=== PATIENT | male | born 1935 | race Caucasian/White ===

== ENCOUNTER → 2016-12-28 | Outpatient (CLI) | payer MEDICARE, OTHER ==
[~2016-12-28] MED LIST: BACTRIM DS1 TAB PO; CALCITRIOL0.25 MCG PO; COUMADIN ** IA3 MG PO; COUMADIN3 MG PO; DIOVAN HCT 3201 EAC1 PO; FLOMAX0.4 MG PO; HUMALOG100 UNIT/1 SUB-Q; KEFLEX500 MG PO; KETOROLAC TROME10 MG PO; LANTUS100 UNIT/1 SUB-Q; LASIX20 MG PO; LEVAQUIN500 MG PO; LIDOPRIL XR 2.1 EACH TOP; LIPITOR40 MG PO; LOPRESSOR50 MG PO; LOVENOX 12120 MG/0.8 SUB-Q; LOVENOX 4040 MG/0.4 SUB-Q; NEOSPORIN1 PKT TOP; NEURONTIN300 MG PO; NORCO 5-325 TA1 EACH PO; NORVASC5 MG PO; PAXIL40 M1 PO; PRESERVISION L1 EACH PO; PRILOSEC20 MG PO; PYRIDIUM100 MG PO; RESTORIL7.5 MG PO; SENOKOT8.6 MG PO; VITAMIN D1000 UNI1 PO
== END | disposition disaster alternative care site (69) ==
LOC: GRAD 12-27 14:00
DX: M54.9 Dorsalgia, unspecified (principal); M43.16 Spondylolisthesis, lumbar region; M71.38 Other bursal cyst, other site

== ENCOUNTER → 2016-12-31 | Outpatient (CLI) | payer MEDICARE, OTHER ==
[2016-12-31 11:41] LABS: ANION GAP 12.5 (10.0-19.0); CALCIUM 8.4 mg/dL (8.5-10.5); POTASSIUM 4.5 mMol/L (3.7-5.1)
[2016-12-31 11:46] LABS: CREATININE 4.1 mg/dL (0.6-1.3)
== END | disposition disaster alternative care site (69) ==
LOC: LNHI 11:23
PROVIDERS: Internal Medicine Interventional Cardiology
DX: I10 Essential (primary) hypertension (principal); I48.91 Unspecified atrial fibrillation; I35.0 Nonrheumatic aortic (valve) stenosis

== ENCOUNTER → 2017-01-06 | Outpatient (CLI) | payer MEDICARE, OTHER ==
[2017-01-06 15:11] LABS: BASOPHIL % 0.5 %; EOSINOPHIL # 0.2 K/uL (0.0-0.5); EOSINOPHIL % 3.8 %; HEMATOCRIT 36.3 % (33.0-50.0); HEMOGLOBIN 12.2 g/dL (11.0-16.0); IMMATURE GRANULOCYTE % 0.2 %; LYMPHOCYTE # 1.3 K/uL (0.8-4.0); LYMPHOCYTE % 24.5 %; MCH 30.7 pg (27.0-34.0); MCHC 33.6 gm/dL (32.0-36.5); MCV 91.2 fl (83.0-98.0); MONOCYTE # 0.5 K/uL (0.0-1.0); MONOCYTE % 9.9 %; MPV 11.4 fl (9.4-12.4); NEUTROPHIL # (ANC) 3.4 K/uL (1.4-9.0); NEUTROPHIL % 61.1 %; NRBC % 0 /100WBC (0-0.00); PLATELET COUNT 125 K/uL (150-450); RBC 3.98 M/uL (3.50-5.50); RDW-CV 14.3 % (11.9-14.6); WBC 5.5 K/uL (4.0-11.0)
[2017-01-06 15:18] LABS: INR - (THERAPEUTIC) 1.11 (0.92-1.07); PROTIME 11.7 SECONDS (9.8-11.4)
== END | disposition disaster alternative care site (69) ==
LOC: GOPD 01-03
PROVIDERS: Neurological Surgery
PROC: 3E0R33Z Introduction of Anti-inflammatory into Spinal Canal, Percutaneous Approach (ICD-10-PCS; principal; 2017-01-06)
PROC: 3E0R3BZ Introduction of Anesthetic Agent into Spinal Canal, Percutaneous Approach (ICD-10-PCS; 2017-01-06)
DX: M54.5 Low back pain (principal); M43.16 Spondylolisthesis, lumbar region; M48.06 Spinal stenosis, lumbar region; M79.604 Pain in right leg; Z79.01 Long term (current) use of anticoagulants
CPT/HCPCS: J1040

== ENCOUNTER → 2017-01-24 | Outpatient (CLI) | payer MEDICARE, OTHER ==
[2017-01-24 09:54] LABS: INR - (THERAPEUTIC) 1.55 (0.92-1.07); PROTIME 16.4 SECONDS (9.8-11.4)
== END | disposition disaster alternative care site (69) ==
LOC: LGSMG 09:32
PROVIDERS: Internal Medicine Nephrology
DX: Z79.01 Long term (current) use of anticoagulants (principal); N18.4 Chronic kidney disease, stage 4 (severe)

== ENCOUNTER → 2017-01-26 | Day surgery (SDC) | payer MEDICARE, OTHER ==
[~2017-01-26] VITALS: Ht 185.4 cm; Wt 83.9 kg
--- NOTE | ~2017-01-26 | OR ---
PATIENT'S NAME: [facility]ANIEL [facility] AGE: 81 Y [address] ROOM: [place] [id number] [place] [facility] [place]: 01/26/2017 OR/Procedure Report DISCHARGE DATE: FAMILY PHYSICIAN: RICO RAMIREZ MD ATTENDING PHYSICIAN: STEWART SALDANA SURGEON: Stewart Saldana MD OPERATING ROOM SPECIALIST: DATE OF PROCEDURE: 01/26/2017 PREOPERATIVE DIAGNOSIS: End stage renal disease. POSTOPERATIVE DIAGNOSIS: End stage renal disease. PROCEDURE: Right brachiocephalic arteriovenous fistula. TERMINAL GAUGER: SARAH BETH Prabhakar. ANESTHESIA: General. ESTIMATED BLOOD LOSS: 5 mL. OPERATIVE FINDINGS: Good thrill and bruit. Strong radial and ulnar signal at the end of the case. DESCRIPTION OF PROCEDURE: The patient was brought to the operating room, placed supine on the operating room table, placed under general anesthesia, prepped and draped in a sterile manner. Preoperative time-out was performed. The patient received preoperative antibiotics. We made a standard incision 2 cm proximal to the antecubital fossa, dissected down the fascia, incised the fascia in a longitudinal manner, dissected out the brachial artery. We then dissected the cephalic vein in a similar fashion. We then ligated and transected the cephalic vein. We then gave 5000 units of heparin. We made an arteriotomy to a size of 4 mm using 11-blade as well as Lewis scissors. We then did a standard 6-0 Prolene anastomosis from the vein to the artery. We then removed the clamps. There was excellent flow into the fistula and strong radial and ulnar signal. Heparin was given prior to clamping, which was reversed with protamine at the end of the case. Thrombin was used locally in the wound. Deep layers were closed with 2-0 and 3-0 Vicryl. Skin was closed with running 4-0 Monocryl. The patient tolerated the procedure well and transferred to recovery room and home later that day. STEWART SALDANA MD PATIENT'S NAME: DANIEL P[facility] AGE: 81 Y [address] ROOM: [place], [place] [address] [place] [facility] [place]: 01/26/2017 OR/Procedure Report DISCHARGE DATE: FAMILY PHYSICIAN: RICO RAMIREZ MD ATTENDING PHYSICIAN: STEWART SALDANA/gene /[id number] d: 01/26/17 2145 t: 01/28/17 1833, OPERATIVE SUMMARY
[2017-01-26 08:16] LABS: BASOPHIL % 0.4 %; EOSINOPHIL # 0.2 K/uL (0.0-0.5); EOSINOPHIL % 3.8 %; HEMOGLOBIN 11.9 g/dL (11.0-16.0); LYMPHOCYTE # 0.8 K/uL (0.8-4.0); MCV 91.1 fl (83.0-98.0); MONOCYTE # 0.6 K/uL (0.0-1.0); MPV 11.3 fl (9.4-12.4); NEUTROPHIL # (ANC) 3.6 K/uL (1.4-9.0); NEUTROPHIL % 68.8 %; NRBC % 0 /100WBC (0-0.00); PLATELET COUNT 125 K/uL (150-450); RBC 3.84 M/uL (3.50-5.50); RDW-CV 14.5 % (11.9-14.6); WBC 5.2 K/uL (4.0-11.0)
[2017-01-26 08:27] LABS: INR - (THERAPEUTIC) 1.13 (0.92-1.07); PROTIME 11.9 SECONDS (9.8-11.4)
[2017-01-26 08:31] LABS: ALBUMIN 2.5 gm/dL (3.5-5.0); CALCIUM 8.4 mg/dL (8.5-10.5); TOTAL BILIRUBIN 0.5 mg/dL (0.0-1.5)
[2017-01-26 08:32] LABS: CREATININE 4.3 mg/dL (0.6-1.3)
== END | disposition disaster alternative care site (69) ==
LOC: GSDC 07:32 → EDSTATUS 12:30
PROVIDERS: Surgery Vascular Surgery
DX: E11.22 Type 2 diabetes mellitus with diabetic chronic kidney disease (principal); I12.0 Hypertensive chronic kidney disease with stage 5 chronic kidney disease or end stage renal disease; N18.6 End stage renal disease; F32.9 Major depressive disorder, single episode, unspecified; E78.5 Hyperlipidemia, unspecified; E11.40 Type 2 diabetes mellitus with diabetic neuropathy, unspecified; K21.9 Gastro-esophageal reflux disease without esophagitis; Z87.891 Personal history of nicotine dependence; Z85.528 Personal history of other malignant neoplasm of kidney; Z90.5 Acquired absence of kidney; Z90.49 Acquired absence of other specified parts of digestive tract; Z98.41 Cataract extraction status, right eye; Z98.42 Cataract extraction status, left eye; Z98.890 Other specified postprocedural states; Z79.4 Long term (current) use of insulin; Z79.899 Other long term (current) drug therapy; Z91.041 Radiographic dye allergy status; Z88.8 Allergy status to other drugs, medicaments and biological substances; Z88.5 Allergy status to narcotic agent
CPT/HCPCS: J0690; J1644; J2001; J2720; J7030